=== PATIENT | male | born 1995 | race Caucasian/White ===

== ENCOUNTER 2017-04-13 09:14 | Inpatient (IN) | payer BC ==
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
[2017-04-13 10:00] LABS: % IMMATURE GRANULYOCYTES 0.2 % (0.0-1.1); ABSOLUTE IMMATURE GRANULOCYTES 0.02 10^3/uL (0.00-0.10); ADD DIFF? NO; ADD MORPH? NO; ADD SCAN? NO; ATYPICAL LYMPHOCYTE FLAG 0 (0-99); FRAGMENT RBC FLAG 0 (0-99); HEMATOCRIT 47.5 % (40.0-51.0); HEMOGLOBIN 17.3 g/dL (13.7-17.5); LEFT SHIFT FLG 0 (0-99); LIPEMIA HEMOLYSIS FLAG 90 (0-99); MEAN CELL HEMOGLOBIN 31.1 pg (27.9-34.1); MEAN CELL HEMOGLOBIN CONCENTR. 36.4 g/dL (32.4-36.7); MEAN CELL VOLUME 85.3 fL (81.5-99.8); PLATELET CLUMPS FLAG 0 (0-99); PLATELET COUNT 297 10^3/uL (150-400); RED BLOOD CELL COUNT 5.57 10^6/uL (4.40-6.38); RED CELL DISTRIBUTION WIDTH 12.3 % (11.5-15.2)
[2017-04-13 10:22] LABS: ANION GAP 15 mEq/L (8-16); CARBON DIOXIDE 24 mEq/l (22-31); CHLORIDE 102 mEq/L (97-110); CREATININE 0.8 mg/dL (0.7-1.3); ETHANOL SERUM < 10 mg/dL (0-10); GLOMERULAR FILTRATION RATE > 60; GLUCOSE 92 mg/dL (70-100); POTASSIUM 4.4 mEq/L (3.5-5.2); SODIUM 141 mEq/L (134-144)
[2017-04-13] MEDS ORDERED: ACETAMINOPHEN 325 MG TAB PO PRN (16:48)
[2017-04-13] MEDS ORDERED: MAG HYDROX/AL HYDROX/SIMETH 30 ML UDCUP PO PRN (16:49)
[2017-04-13] MEDS ORDERED: LORazepam 1 MG TAB PO PRN (16:49)
[2017-04-13] MEDS ORDERED: MAGNESIUM HYDROXIDE 30 ML UDCUP PO PRN (16:51)
[2017-04-14] MEDS ORDERED: hydrOXYzine HCL 25 MG TAB PO PRN (11:02)
[2017-04-14 11:07] LABS: ALANINE AMINOTRANSFERASE 36 IU/L (21-72)
[2017-04-14] MEDS: LITHIUM CARBONATE 300 MG CAP PO SCH ×3 (11:09→20:41)
[2017-04-14] MEDS: VENLAFAXINE XR 150 MG CAP PO SCH (11:09)
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
--- NOTE | 2017-04-14 16:47 | BCON ---
[f rep st] BEHAVIORAL HEALTH CONSULTATION INTERNAL MEDICINE CONSULTATION DATE OF CONSULTATION: 04/14/2017 REFERRING PHYSICIAN: Homero Castro MD REASON FOR REFERRAL: Medical clearance for inpatient behavioral health stay. HISTORY OF PRESENT ILLNESS: This patient was brought to the emergency department by his mother and his mother's boyfriend. He had increased depression and suicidal ideation. He has had depression since age 16. He had a recent increase in his dose of Effexor. He was evaluated by the mental health team and admitted for further psychiatric care. He currently is without any acute complaints. PAST MEDICAL HISTORY: 1. Depression. 2. Appendicitis. PAST SURGICAL HISTORY: He has had an appendectomy. MEDICATIONS: He was taking Effexor 150 mg twice daily. ALLERGIES: There are no known drug allergies. SOCIAL HISTORY: He lives with his mother. 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 He is a nonsmoker and does not use alcohol. FAMILY HISTORY: Noncontributory. REVIEW OF SYSTEMS: He denies pain, cough, dyspnea, fevers, chills, recent weight change, nausea, vomiting, constipation, or diarrhea. Otherwise, a 10- point review of systems was negative. PHYSICAL EXAM: VITAL SIGNS: Blood pressure this morning was 140/68, heart rate was 89, respiratory rate was 12, oxygen saturation was 96% on room air, temperature was 36.9 degrees centigrade. His weight is 99.8 kg for a body mass index of 33.5. His blood pressure since he presented yesterday has ranged from 133-144 systolic and 68-87 diastolic. GENERAL: This is a well-nourished, well- developed, overweight appearing man, appears his chronologic age, cooperative and in no acute distress. HEENT: Extraocular movements are intact. Pupils are equal, round, reactive to light. Mucous membranes are moist. Dentition is in good condition. He has an uncrowded airway, Mallampati class 1. NECK: Supple. HEART: Regular rate and rhythm with no murmurs, rubs, or gallops. LUNGS: Clear to auscultation bilaterally. ABDOMEN: Benign. EXTREMITIES: There is no cyanosis, clubbing, or edema. NEUROLOGIC: He is alert and oriented x3. Cranial nerves 2-12 are grossly intact. There is no focal weakness. Sensation is intact to light touch and gait is within normal limits. LABORATORY STUDIES: Drawn in the emergency department, CBC and BMP were within normal limits. ALT was normal at 36. TSH was normal at 2.35. Toxicology screen in the serum was negative for ethyl alcohol, and the urine was negative for any substances of abuse. ASSESSMENT/RECOMMENDATIONS: 1. Mental health issues pending further evaluation and management per Psychiatry and the mental health team. 2. Obesity. Discussed exercise. He might benefit from a consult with a dietitian. This could be accomplished on an outpatient basis. 3. Elevated blood pressure in an obese young man, certainly at risk for hypertension. Advise continued monitoring of blood pressure. It is not high enough to be an acute risk. It may improve with tapering of Effexor, though hypertension with Effexor happens only 2% to 5% of the time. If blood pressure is persistently elevated, it could be treated with increased exercise and consider discussion of the DASH diet. Alternately, consider initiation of an antihypertensive, and would choose amlodipine as he is concurrently being treated with lithium, which contraindications ARIANNA inhibitors and diuretics shoul alld be used cautiously due to the risk of dehydration. I see no medical contraindications to this patient's continued stay on the inpatient behavioral health unit or to any psychiatric medications or procedures. Thank you very much for including me in the care of this patient and please do not hesitate to contact me or the hospitalist service should there be need for further medical evaluation. /[id number]/MODL MTDD
--- NOTE | 2017-04-15 08:47 | SOAPPROG ---
SOAP Progress Note Assessment/Plan: Assessment: Bipolar Disorder type II, depressed with mixed features Borderline PD traits Borderline HTN, overweight Patient appears improved and tolerating [place]. Plan: Continue self-harm precautions Patients agrees to treatment voluntarily Continue Effexor XR 150mg, reduced after admission Continue [place] 300mg TID Reviewed drug interactions, signs/symptoms of toxicity, and risk of hypothyroidism and renal dysfunction with lithium Check lithium level 04/17, possible discharge 04/17 if stable 04/15/17 08:44 Subjective: "Better" Patient reports tolerating lithium without side effects. Reports he wants to continue Effexor due to past severe depression when not taking this medication. Reports improved mood and outlook on the future. Denies thoughts of self- harm. Denies feeling agitated. Endorses racing thoughts but reduced from yesterday. Denies violent thoughts or paranoia. Agrees to referral to outpatient [facility] for psychiatry follow up. Read handout on ECT and doesn't want this treatment currently. Objective: Vital Signs Temp Pulse Resp BP Pulse Ox 36.4 C 95 16 109/59 L 94 04/15/17 06:00 04/15/17 06:00 04/15/17 06:00 04/15/17 06:00 04/15/17 06:00 ALert HM, cooperative. Restless and distracted at times. Speech RRR, rapid briefly at times. Thoughts organized. Mood 'better' Affect euthymic. Denies SI or HI or AH or paranoia. Insight fair. Judgment appropriate. Staff report patient calm on unit and slept overnight, eating and compliant with medications. - Time Spent With Patient Time Spent With Patient: 30 min - Pending Discharge Pending Discharge Within 24 Hours: No Pending Discharge Within 48 Hours: Yes Pending Discharge Date: 04/17/17 Pending Discharge Time: 11:00 ICD10 Worksheet Patient Problems: Problems Problem Status Onset Bipolar 2 disorder Acute Depression Acute Suicidal ideation Acute
[2017-04-15] MEDS: VENLAFAXINE XR 150 MG CAP PO SCH (08:59)
[2017-04-15] MEDS: LITHIUM CARBONATE 300 MG CAP PO SCH ×3 (09:00→21:52)
[2017-04-16 06:40] VITALS: RESP 14
[2017-04-16] MEDS: VENLAFAXINE XR 150 MG CAP PO SCH (09:41)
[2017-04-16] MEDS: LITHIUM CARBONATE 300 MG CAP PO SCH ×3 (09:41→21:40)
--- NOTE | 2017-04-16 11:09 | SOAPPROG ---
SOAP Progress Note Assessment/Plan: Assessment: Bipolar Disorder type II, depressed with mixed features Borderline PD traits Borderline HTN, overweight Patient admitted on M-1 for SI but now voluntary. Patient appears improved and tolerating [place]. Plan: Monitor mood stability Continue Effexor XR 150mg, reduced after admission Continue [place] 300mg TID Check lithium level 04/17 Discontinue suicide precautions, discharge tomorrow if stable 04/16/17 11:09 Subjective: "Alright, a little tired" Patient reports she slept well, has good appetite, feels tired this AM. Denies tremors or confusion or nausea or diarrhea. Denies violent or suicidal thoughts. Reports improved mood, more hopeful with a reduction in racing thoughts. Feels less distracted. Reports he enjoys going to [place] with family , exercising, skate/long boarding, working, listening to music, making art, and talking with friends and will use these coping skills if discharged. Agrees to follow up at [facility] after discharge. Objective: Vital Signs Temp Pulse Resp BP Pulse Ox 36.7 C 100 14 117/64 95 04/16/17 06:00 04/16/17 06:00 04/16/17 06:00 04/16/17 06:00 04/16/17 06:00 Alert male, appears anxious at times. Good eye contact, euthymic affect. Mood 'better, a little tired' Thoughts organized. Denies SI or HI or AH or paranoia. Fair insight, appropriate judgment Staff report patient slept 8 hours, calm on unit, able to attend groups without problems, not appearing distressed. - Time Spent With Patient Time Spent With Patient: 20 minutes - Pending Discharge Pending Discharge Within 24 Hours: No Pending Discharge Within 48 Hours: No ICD10 Worksheet Patient Problems: Problems Problem Status Onset Bipolar 2 disorder Acute Depression Acute Suicidal ideation Acute
[2017-04-17 06:32] VITALS: BP 121/68; PULSE 98; TEMP 97.9; O2SAT 96
[2017-04-17] MEDS: VENLAFAXINE XR 150 MG CAP PO SCH (08:54)
[2017-04-17] MEDS: LITHIUM CARBONATE 300 MG CAP PO SCH (08:54)
[2017-04-17 10:52] LABS: ANION GAP 18 mEq/L (8-16); CALCIUM 10.2 mg/dL (8.5-10.4); CARBON DIOXIDE 20 mEq/l (22-31); CHLORIDE 102 mEq/L (97-110); CREATININE 0.8 mg/dL (0.7-1.3); GLOMERULAR FILTRATION RATE > 60; GLUCOSE 144 mg/dL (70-100); LITHIUM 0.4 mEq/L (0.6-1.2); SODIUM 140 mEq/L (134-144)
--- NOTE | 2017-04-17 13:03 | BDS ---
[f rep st] BEHAVIORAL HEALTH DISCHARGE SUMMARY ADMITTING DIAGNOSIS: Suicidal ideation. Bipolar disorder type 2, most recent episode depressed with mixed features. Borderline personality traits. IDENTIFICATION: This is a 21-year-old single male who lives with his mother. 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 BRIEF PSYCHIATRIC HISTORY: The patient reports a history of depression, mood swings, superficial cutting on himself for several years. He reported he received counseling in the past at [facility]. He had psychiatric medication trial and primary care over the past year without any clear benefit. He had taken Prozac and Wellbutrin in the past without any benefit. The patient had been taking Effexor 150 mg a day from his primary care and then increased that to 150 mg twice a day about 3 weeks prior to admission. The patient denies any history of suicide attempts, but he does have a history of superficially cutting on himself when feeling depressed in the past. He denies any history of violence toward others or arrests. He had no prior psychiatric hospitalization. BRIEF MEDICAL HISTORY: The patient is overweight. He denies any chronic medical problems. He denies head injuries or seizures. REASON FOR ADMISSION: The patient was taken to the emergency department by his mother. The patient reported he was depressed and had suicidal thoughts. He reported not wanting to live with severe hopelessness. He also reported thoughts of killing himself, including thoughts of cutting his wrist and thoughts of overdosing on pills. His mother wanted the patient evaluated for electroconvulsive therapy. INITIAL EXAM: He was an alert male in no acute distress. He was ambulatory. Appeared healthy but overweight. He was ambulatory without weakness or tremors. His speech was loud and rapid. He reported racing thoughts and suicidal thoughts. He denied violent thoughts. He denied any paranoia or hallucinations. He had fair insight but impaired judgment. HOSPITAL COURSE: The patient was admitted to the inpatient unit for evaluation. The patient reported long history of depression as well as borderline personality traits including cutting on himself when he felt upset. The patient had rapid speech and reported racing thoughts with irritability. The patient's Effexor was reduced from 150 b.i.d. down to 150 once a day because he was having mixed mood symptoms. He was started on lithium 300 mg p.o. t.i.d. The patient tolerated this medication. He was given the option of electroconvulsive therapy for severe depression, but he did not want this after discussion of the initial duration of treatment and potential side effects. He was given options of other mood stabilizer medications including Abilify and Depakote. The patient tolerated lithium. We reviewed a handout on lithium from the [employer] [place] [employer] that reviewed the risk of kidney dysfunction, hypothyroidism, weight gain, drug interactions, and the signs and symptoms of toxicity. The patient, after 3-1/2 days on the unit taking lithium 300 mg p.o. t.i.d., had a lithium level of 0.4. Patient was instructed to increase his dose to 600 mg p.o. b.i.d. after discharge. The patient reported marked improvement in mood. He reported reduction in racing thoughts and improvement in his outlook on life, reported feeling less anxious and less distracted, and reported remission of his suicidal thoughts. He reported on the unit he felt calm and better. He was able to sleep well on the unit, attend groups, he was eating well, and did not appear to be in severe emotional distress for >24 hours prior to discharge. The patient's mother was contacted, and she will assist him in getting outpatient mental health followup after discharge. The patient on the unit was noted to have borderline hypertension. His initial glucose was normal, but a followup blood glucose, which was NOT fasting, was 144. The patient was given information about the importance of having primary care followup to recheck his blood pressure and his glucose and was educated on the importance of exercise and eating a low carbohydrate diet. The patient did not want to taper off the Effexor, even though it is not clear that this was an effective or helpful medication, but was willing to reduce the dose from 150 b.i.d. to 150 once a day. The patient did not display any dangerous or reckless behaviors on the unit. He had a marked improvement in that he became less anxious, his speech was less pressured, and he reported remission of his racing thoughts. He tolerated lithium without side effects. CONDITION ON DISCHARGE: alert overweight HM, ambulatory without tremors. Speech RRR. Mood 'better' affect restricted. Thoughts organized. Denies SI or HI. Denies AH or paranoia. Fair memory, good insight, appropriate judgment. LABORATORY DATA: The patient's CBC was normal. He had a sodium 141, potassium 4.4, creatinine 0.8, glucose 92. A followup blood test showed a glucose of 144 , but that was after breakfast. His ALT was 36. TSH 2.3. Urine drug screen was negative. Gladwin level was 0.4 on 900 mg of lithium a day for 3-1/2 days. DISCHARGE DIAGNOSIS: Bipolar disorder type 2, most recent episode depressed with mixed features. DISCHARGE MEDICATIONS: Gladwin 600 mg p.o. b.i.d. The prescription is for the 300 mg capsule to take 2 capsules in the morning and 2 capsules at night. Also , Effexor XR 150 mg by mouth once a day. DISPOSITION: The patient's mother will pick the patient up and assist him in getting followup mental health and medical treatment. FOLLOWUP: The patient was referred to [facility] in [place]. The patient has a followup appointment at his primary care provider in [place] as well to recheck his blood pressure and his glucose in 1 month. LEGAL STATUS: The patient was admitted on an M1 hold and then converted to voluntary status during the course of the hospitalization and will be discharged to be receiving outpatient treatment on a voluntary basis. /[id number]/MODL MTDD
== END 2017-04-17 14:35 | disposition home or self-care (01) | DRG 885 ==
LOC: BBEH 15:20
PROVIDERS: ADMIT Psychiatry & Neurology Psychiatry; ATTEND Psychiatry & Neurology Psychiatry
DX: F31.81 Bipolar II disorder (principal); E66.9 Obesity, unspecified
CPT/HCPCS: 80305; G0480